=== PATIENT | male | born 1945 | race Caucasian/White ===

== ENCOUNTER 2023-05-18 10:48 | Outpatient (CLI) | payer MEDICARE, OTHER, SELFPAY ==
[2023-05-18 10:56] VITALS: BP 170/79; PULSE 61; RESP 18; O2SAT 96
[2023-05-18] MEDS: TETRACAINE 0.5% OPHTH 1 DROP EYE-BOTH ×3 (10:59→11:22)
[2023-05-18] MEDS: BRIMONIDINE TARTRATE 0.2% OPHTH 1 DROP EYE-BOTH ×2 (11:01→11:37)
--- NOTE | 2023-05-18 11:38 | P.OPTPRC_ITS ---
Procedure Note Date of procedure: 05/18/23 Will [facility] bill your pro fee for this procedure?: Yes Procedure Description: SURGEON: Jailyn Morin MD PREOPERATIVE DIAGNOSIS: Posterior capsular opacity, right and left eye POSTOPERATIVE DIAGNOSIS: Posterior capsular opacity, right and left eye PROCEDURE: YAG laser capsulotomy, both eyes ANESTHESIA: Topical. ESTIMATED BLOOD LOSS: None PATHOLOGY SPECIMEN: None COMPLICATIONS: None INDICATIONS: See consult note for details. The risks, benefits and alternatives of the procedure were explained to the patient, who elected to proceed and signed informed consent to do so. PROCEDURE: The patient was brought to the pre-holding area where the right and left eyes were identified as the operative eyes. I placed my initials above the eyes. The following was given in both eyes: The patient received 2 sets of 1 drop of 0.5% tetracaine and 1 drop of 1% tropicamide. They also received 1 drop of 0.2% brimonidine. They received 1 drop of 0.5% tetracaine immediately prior to bringing them back for the procedure. The patient was then brought to the procedure room where the right and left eyes were again identified as the operative eyes. A YAG Mitchell capsulotomy lens was placed on the right eye. The laser was administered using a total number of 14 shots with an energy of 2.4 mJ per shot for a total energy of 34 mJ. The patient tolerated the procedure well. A YAG Mitchell capsulotomy lens was placed on the left eye. The laser was administered using a total number of 10 shots with an energy of 2.4 mJ per shot for a total energy of 24 mJ. The patient tolerated the procedure well. DISPOSITION: The patient was taken back to the pre-holding area and given 1 drop of 0.2% brimonidine in both eyes. They were discharged to home in stable condition. The patient was instructed to call me or go to the emergency department with any sudden change, including dramatic loss of vision, severe pain in the eye or eyebrow region, nausea, or vomiting. The patient was instructed to use the 0.2% brimonidine 1 drop 2 times a day in both eyes for 1 week. The patient will follow up in the clinic in 1-2 weeks.
== END 2023-05-18 11:38 | disposition home or self-care (01) ==
LOC: EYE PRC 10:51
PROVIDERS: PCP Family Medicine; Visit Provider Ophthalmology
DX: H26.9 Unspecified cataract (principal)
CPT/HCPCS: 66821; A9270

== ENCOUNTER 2023-11-10 13:58 | Observation (INO) | payer MEDICARE, OTHER, SELFPAY ==
[2023-11-10 14:18] VITALS: BP 180/72; PULSE 106; RESP 20; TEMP 38.6; O2SAT 97; BMI 29.5
--- NOTE | 2023-11-10 14:58 | CRLHL7_ITS ---
For Patients: As a result of the Century Cures Act, medical imaging exams and procedure reports are released immediately into your electronic medical record. You may view this report before your referring provider. If you have questions, please contact your health care provider. INDICATION: Covid positive TECHNIQUE: Chest 2 views. COMPARISON: None. FINDINGS: Cardiovascular and mediastinum: Heart size and vasculature are within normal limits. Lungs and pleural spaces: Lungs are clear. No sign of infiltrate or mass. No sign of pleural effusion. No pneumothorax. Bones and soft tissues: No significant findings. IMPRESSION: No acute cardiopulmonary process. Dictated by Buster Og MD @ 11/10/2023 4:36:04 PM (Electronically Signed)
[2023-11-10] MEDS: LACTATED RINGERS 1000 ML 1,000 ML IV (15:20)
[2023-11-10] MEDS: ACETAMINOPHEN 325 MG TABLET 650 MG PO (15:20)
[2023-11-10 15:55] LABS: Lactate* 2.8 mmol/L (0.5-1.9)
[2023-11-10 16:02] LABS: Basophils Percent Auto 0.4 % (0.0-3.0); Eosinophils Percent Auto 0.1 % (0.0-7.0); Hematocrit 40.5 % (37.0-53.0); Hemoglobin* 14.6 gm/dL (13.5-17.5); Immature Granulocytes Pct Auto 0.1 %; Lymphocytes Percent Auto 3.7 % (20-44); Mean Corpuscular HGB Conc 36 gm/dL (32-36); Mean Corpuscular Hemoglobin 31 pg (26-34); Mean Corpuscular Volume 86 fL (80-100); Neutrophils Percent Auto 88.7 % (42.0-72.0); Platelet Count* 186 K/uL (140-440); RDW Coefficient of Variation % 12.6 % (11.5-15.5); Red Blood Count 4.71 m/uL (4.30-5.90); White Blood Count* 13.51 K/uL (4.50-11.00)
[2023-11-10 16:03] LABS: Slide Review Reflex No
--- NOTE | 2023-11-10 16:03 | ED.GENADULT ---
HPI - General Adult General Date Seen: 11/10/23 Chief complaint: Fever Stated complaint: Fever, diarrhea Time Seen by Provider: 11/10/23 14:24 Source: patient Mode of arrival: ambulatory Limitations: no limitations History of Present Illness HPI narrative: Patient is a 78-year-old male with history of hypertension, hyperlipidemia and a recent prostate biopsy presenting to the emergency department for fever and diarrhea. He states he had the grossly biopsy 6 days ago at in the few hours after this was done he started having watery diarrhea. Has been having watery diarrhea since then ordered had 1 episode yesterday which she says it was more formed. Today he developed a fever is not yet taking anything for that fever. You was feeling mildly fatigued and decided to do a home COVID test that was positive. Denies chest pain, shortness of breath, abdominal pain, weakness, numbness, lightheadedness, dizziness. Has not noticed any blood in his urine or stool. Denies any dysuria. He states he was initially told he would see blood in his urine for up to week but states was only there for 24 hours at the most. Related Data Home Medications Medication Instructions Recorded Confirmed lisinopril 20 2 tab PO DAILY 11/10/23 11/10/23 mg-hydrochlorothiazide 12.5 mg tablet simvastatin 20 mg tablet 20 mg PO QPM 11/10/23 11/10/23 tamsulosin 0.4 mg capsule 0.4 mg PO DAILY 11/10/23 11/10/23 Allergies Allergy/AdvReac Type Severity Reaction Status Date / Time No Known Drug Allergies Allergy Verified 11/10/23 19:56 Review of Systems Status of ROS: Reports: 10 or more systems reviewed and unremarkable except as noted in History and below [facility] Medical History (Updated 11/10/23 @ 21:05 by Jie Sanchez MD) Elevated PSA ?R97.20 - Elevated prostate specific antigen [PSA] (ICD-10) BPH (benign prostatic hyperplasia) ?N40.0 - Benign prostatic hyperplasia without lower urinary tract symptoms (ICD-10) Prediabetes ?R73.03 - Prediabetes (ICD-10) Tricuspid regurgitation ?I07.1 - Rheumatic tricuspid insufficiency (ICD-10) Hyperlipidemia ?E78.5 - Hyperlipidemia, unspecified (ICD-10) Essential hypertension ?I10 - Essential (primary) hypertension (ICD-10) Surgical History (Updated 11/10/23 @ 19:34 by Jie Sanchez MD) Hx of tonsillectomy ?Z90.89 - Acquired absence of other organs (ICD-10) H/O nasal septoplasty ?Z98.890 - Other specified postprocedural states (ICD-10) Hx of cataract removal with insertion of prosthetic lens ?Z98.49 - Cataract extraction status, unspecified eye (ICD-10) ?Z96.1 - Presence of intraocular lens (ICD-10) Social History Smoking Status: Never smoker Do you use any of these nicotine containing products: None How often do you have a drink containing alcohol: 2-4 times a month How many standard drinks containing alcohol do you have on a typical day: 1 or 2 AUDIT-C Alcohol total score: 2 Non-prescribed substance use: denies use Exam Narrative: Exam Narrative: Const: Well-nourished, Well-developed, in mild distress Eyes: PERRL, no conjunctival injection, and symmetrical lids HENT: Atraumatic external nose and ears. Moist mucous membranes. Neck: Symmetric, trachea midline, No thyromegaly. CVS: Tachycardia, No murmurs or gallops. Peripheral pulses 2+ and equal in all extremities RESP: Unlabored respiratory effort. Clear to auscultation bilaterally. GI: Nontender/Nondistended, No rebound or guarding. MSK:Extremities w/o deformity, Normal Active ROM Skin: Warm, Dry. No rashes or lesions. Neuro: Normal Muscle tone, No focal neurological deficits. Psych: Awake, Alert, & Oriented x3. Appropriate mood and affect. Const: Vital Signs, click to edit/add: Vital Signs - 24 hr 11/10/23 14:18 11/10/23 16:32 11/10/23 20:04 Temperature 101.5 F H 100.0 F H Pulse Rate [Pulse Oximeter] 106 H 90 89 Respiratory Rate 20 20 20 Blood Pressure [Ri ght Upper Arm] 180/72 H 131/58 L 130/64 Pulse Oximetry 97 96 98 Oxygen Delivery Me thod Room Air Room Air Room Air Course Vital Signs Vital signs: Initial Vital Signs Temperature 101.5 F H 11/10/23 14:18 Temperature Source Temporal Artery Scan 11/10/23 14:18 Pulse Rate 106 H 11/10/23 14:18 Respiratory Rate 20 11/10/23 14:18 Blood Pressure 180/72 H 11/10/23 14:18 Blood Pressure Mean 108 H 11/10/23 14:18 Blood Pressure Position Sitting 11/10/23 14:18 Pulse Oximetry 97 11/10/23 14:18 Oxygen Delivery Method Room Air 11/10/23 14:18 Vital Signs Temperature 101.5 F H 11/10/23 14:18 Pulse Rate 106 H 11/10/23 14:18 Respiratory Rate 20 11/10/23 14:18 Blood Pressure 180/72 H 11/10/23 14:18 Pulse Oximetry 97 11/10/23 14:18 Oxygen Delivery Method Room Air 11/10/23 14:18 Temperature 99.0 F 11/10/23 20:32 Pulse Rate 95 11/10/23 20:32 Respiratory Rate 16 11/10/23 20:32 Blood Pressure 138/68 11/10/23 20:32 Pulse Oximetry 95 11/10/23 20:32 Oxygen Delivery Method Room Air 11/10/23 20:32 Medications Administered Medications: Generic Name Dose Route Start Last Admin Trade Name Freq PRN Reason Stop Dose Admin Ondansetron HCl 4 mg 11/10/23 19:58 11/10/23 20:10 Ondansetron 2 Mg/Ml Inj IVP 11/10/23 19:59 4 mg ONCE ONE Administration Discontinued Medications Generic Name Dose Route Start Last Admin Trade Name Freq PRN Reason Stop Dose Admin Acetaminophen 650 mg 11/10/23 14:57 11/10/23 15:20 Acetaminophen 325 Mg Tablet PO 11/10/23 14:58 650 mg ONCE ONE Administration Lactated Ringer's 1,000 mls @ 1,000 mls/hr 11/10/23 14:57 11/10/23 16:34 Lactated Ringers 1000 Ml IV 11/10/23 15:56 Infused .Q1H ONE Infusion Medical Decision Making MDM Narrative Medical decision making narrative: Patient is a 78-year-old male presenting to emergency department for fever and diarrhea. He has been having diarrhea since his procedure 6 days ago. He states diarrhea started about an hour after the prostate biopsy. Seems unlikely he will developed infection that quickly. He is tachycardic with a fever and meets SIRS criteria so septic workup was ordered. He is feeling dehydrated in fluids were given. White blood cell count came up to 13.5. While he does have COVID this could be from the COVID but we cannot rule out a bacterial cause so will do CT scan of the abdomen and pelvis to make sure there is no other abnormalities. He also has a lactate of 2.8. After the Tylenol and L fluids his vitals improved significantly and I do not believe it is necessary to given the full 30 per kilos of IV fluids for sepsis. Chest x-ray an EKG showed no concerning abnormalities. Troponin within normal limits. He did have some diarrhea and C diff was ordered. I spoke to the admitting hospitalist and she is agreeable to accept him before the CT of the abdomen and pelvis returns. He is accepted to the hospitalist service. Lab Data Labs: Lab Results 11/10/23 11/10/23 11/10/23 Range/Units 15:30 16:58 19:50 WBC 13.51 H (4.50-11.00) K/uL RBC 4.71 (4.30-5.90) m/uL Hgb 14.6 (13.5-17.5) gm/dL Hct 40.5 (37.0-53.0) % MCV 86 (80-100) fL MCH 31 (26-34) pg MCHC 36 (32-36) gm/dL RDW Coeff of Esmer 12.6 (11.5-15.5) % Plt Count 186 (140-440) K/uL Neut % (Auto) 88.7 H (42.0-72.0) % Lymph % (Auto) 3.7 L (20-44) % [place] % (Auto) 7.0 (0.0-11.0) % Eos % (Auto) 0.1 (0.0-7.0) % Baso % (Auto) 0.4 (0.0-3.0) % Neut # (Auto) 12.00 H (1.7-7.0) K/uL Lymph # (Auto) 0.50 L (0.90-2.90) K/uL [place] # (Auto) 0.90 (0.00-0.90) K/UL Eos # (Auto) 0.00 (0.00-0.50) K/uL Baso # (Auto) 0.10 (0.00-0.30) K/uL Abs Immat Gran (auto) 0.00 (0.00-0.30) K/uL Imm/Tot Granulo (auto) 0.1 % Sodium 130 L (135-149) mmol/L Potassium 3.9 (3.6-5.1) mmol/L Chloride 96 (96-114) mmol/L Carbon Dioxide 23 (20-32) mmol/L Anion Gap 11 (7-15) mEq/L BUN 18 (7-30) mg/dL Creatinine 0.8 (0.5-1.5) mg/dL Estimated Creat Clear 69.64 Estimated GFR 90 ml/min Glucose 134 H (60-115) mg/dL Lactate 2.8 H (0.5-1.9) mmol/L Calcium 8.9 (8.4-10.6) mg/dL Total Bilirubin 1.3 (0.1-1.5) mg/dL AST 24 (12-35) U/L ALT 22 (4-50) U/L Alkaline Phosphatase 114 (40-150) U/L Troponin I < 0.01 L (0.01-0.04) ng/mL Total Protein 6.9 (6.0-8.3) g/dL Albumin 4.4 (3.3-5.0) g/dL Urine Color Dark yellow (Yellow) Urine Appearance Clear (Clear) Urine pH 5.5 (5.0-8.5) Ur Specific [place] >= 1.030 (1.000-1.030) Urine Protein Negative (Negative) Urine Glucose (UA) Trace A (Negative) Urine Ketones Negative (Negative) Urine Blood 2+ A (Negative) Urine Nitrite Negative (Negative) Urine Bilirubin Negative (Negative) Urine Urobilinogen 0.2 (0.2-1.0) Ur Leukocyte Esterase Negative (Negative) Urine RBC 0-2 (0-2) Urine WBC 0-2 (0-5) Ur Squamous Epith Cells None (None-Few) Urine Bacteria Few A (None) Stl C. diff Tox B Gene POSITIVE A* (Negative) Stl C. diff [id number] PRESUMPTIVE POSITIVE (Negative) ECG Data Attestation: I personally reviewed and interpreted this ECG as follows: Prior ECG tracings: not available for review Interpretation: Heart rate of 104 beats per minute, sinus tachycardia, no ST or T-wave abnormalities, normal axis, normal intervals
--- NOTE | 2023-11-10 16:07 | CRLHL7_ITS ---
For Patients: As a result of the Century Cures Act, medical imaging exams and procedure reports are released immediately into your electronic medical record. You may view this report before your referring provider. If you have questions, please contact your health care provider. INDICATION: SIRS, RECENT PROSTATE BIOPSY. TECHNIQUE: CT abdomen and pelvis acquired with 100 cc Omnipaque 350 IV contrast. COMPARISON: None. FINDINGS: Lower chest: Right lower lobe atelectasis. Coronary artery calcifications. Aortic valve calcifications. Liver: Numerous tiny hypodensities throughout the liver likely small cysts. Otherwise normal in size and attenuation. Gallbladder and bile ducts: Cholelithiasis with multiple gallstones in the dependent portion the gallbladder. No gallbladder wall thickening or pericholecystic fluid. No intra or extrahepatic biliary ductal dilatation. Pancreas: Unremarkable. No mass or inflammation. Spleen: Unremarkable. Normal in size. No masses. Adrenal glands: Unremarkable. No nodules. Kidneys: Unremarkable. No suspicious masses, stones, or hydronephrosis. GI tract: Mild thickening and mucosal enhancement in the rectum and sigmoid colon. No bowel obstruction. Vasculature: Abdominal aorta is normal in caliber. Mesenteric arteries are patent. Lymph nodes: No lymphadenopathy. Peritoneum/Abdominal Wall: Unremarkable. No sign of mass or infiltration. No free air or significant free fluid. Pelvis: Unremarkable. Bones: Unremarkable for age. IMPRESSION: Mild wall thickening and mucosal enhancement in the rectum and sigmoid can be seen ascending colitis. Cholelithiasis without evidence of cholecystitis. Please note that all CT scans at this facility use dose modulation, iterative reconstruction, and/or weight-based dosing when appropriate to reduce radiation dose to as low as reasonably achievable. Dictated by Idalia Almanza MD @ 11/10/2023 8:36:23 PM (Electronically Signed)
[2023-11-10 16:13] LABS: Albumin* 4.4 g/dL (3.3-5.0); Chloride* 96 mmol/L (96-114); Sodium* 130 mmol/L (135-149)
[2023-11-10 16:14] LABS: Potassium* 3.9 mmol/L (3.6-5.1)
[2023-11-10 16:16] LABS: Alanine Aminotransferase* 22 U/L (4-50); Alkaline Phosphatase* 114 U/L (40-150); Aspartate Amino Transferase* 24 U/L (12-35); Bilirubin Total* 1.3 mg/dL (0.1-1.5); Blood Urea Nitrogen* 18 mg/dL (7-30); Carbon Dioxide* 23 mmol/L (20-32); Creatinine* 0.8 mg/dL (0.5-1.5); Est. Creatinine Clearance* 69.64; Estimated Glomerular Filt Rate 90 ml/min; Glucose* 134 mg/dL (60-115); Total Protein* 6.9 g/dL (6.0-8.3)
[2023-11-10 16:17] LABS: Calcium* 8.9 mg/dL (8.4-10.6)
[2023-11-10 16:32] VITALS: BP 131/58; PULSE 90; RESP 20; TEMP 37.8; O2SAT 96
[2023-11-10 16:34] LABS: Anion Gap 11 mEq/L (7-15); Troponin I* < 0.01 ng/mL (0.01-0.04)
[2023-11-10 17:08] LABS: Appearance Urine Clear (Clear); Bilirubin Urine Negative (Negative); Blood Urine 2+ (Negative); Color Urine Dark yellow (Yellow); Glucose Urine Trace (Negative); Ketones Urine Negative (Negative); Leukocyte Esterase Urine Negative (Negative); Nitrite Urine Negative (Negative); Protein Urine Negative (Negative); Specific Gravity Urine >= 1.030 (1.000-1.030); Urobilinogen Urine 0.2 (0.2-1.0); pH Urine 5.5 (5.0-8.5)
[2023-11-10 17:52] LABS: Bacteria Urine Few; RBC Urine 0-2 (0-2); WBC Urine 0-2 (0-5)
--- NOTE | 2023-11-10 19:54 | PC.NURSE ---
report given to M/S nurse
[2023-11-10 20:04] VITALS: BP 130/64; PULSE 89; RESP 20; O2SAT 98
[2023-11-10] MEDS: ONDANSETRON 2 MG/ML inj 4 MG IVP (20:10)
--- NOTE | 2023-11-10 20:30 | P.IMHP_ITS ---
Hospitalist- H&P: HPI History of Present Illness Date Seen: 11/10/23 Chief complaint: Fever, diarrhea Narrative: Nick Padron is a 78 year old male who presented to the emergency room today for evaluation of fever. He woke up this morning having chills and feeling shaky. His temporal thermometer at home was inconsistent, but did read a temperature as high as 102.6?. Home COVID testing was positive. Patient denies cough or shortness of breath. No known COVID contacts. Fredi had a prostate biopsy performed at [facility] 6 days ago, and was instructed to come to the emergency room with any fevers postoperatively. There were no complications during his procedure, and he was premedicated with antibiotics. Notably, he has had liquid diarrhea that started soon after his biopsy. He has not had any hematochezia. He is making adequate urine without hematuria. Appetite has been stable. This morning, while he was sitting on the toilet he had a sharp pain in the suprapubic region that resolved in approximately 30 seconds and has not returned. ER Course and Findings: - 1000 mL bolus - elevated lactate, Tmax 101.5 - WBC 13, normal renal function and LFTs - no acute findings on CXR - CT of abdomen and pelvis exhibits concerns of colitis, incidental cholelithiasis - positive C-Diff When I see Fredi, he has no acute concerns. He had one episode of severe nausea in the ED, this resolved upon arrival to the floor after eating a ham sandwich. He has had no syncope, pre-syncope, chest pain, or dyspnea. Review of Systems Status of ROS: Reports: 10 or more systems reviewed and unremarkable except as noted in History and below Narrative: - R knee OA, had Syn-Visc injection on 10/21/23, intermittent pain in R knee [facility] Medical History (Updated 11/10/23 @ 22:28 by Jie Sanchez MD) Elevated PSA ?R97.20 - Elevated prostate specific antigen [PSA] (ICD-10) BPH (benign prostatic hyperplasia) ?N40.0 - Benign prostatic hyperplasia without lower urinary tract symptoms (ICD-10) Prediabetes ?R73.03 - Prediabetes (ICD-10) Tricuspid regurgitation ?I07.1 - Rheumatic tricuspid insufficiency (ICD-10) Hyperlipidemia ?E78.5 - Hyperlipidemia, unspecified (ICD-10) Essential hypertension ?I10 - Essential (primary) hypertension (ICD-10) Surgical History (Updated 11/10/23 @ 19:34 by Jie Sanchez MD) Hx of tonsillectomy ?Z90.89 - Acquired absence of other organs (ICD-10) H/O nasal septoplasty ?Z98.890 - Other specified postprocedural states (ICD-10) Hx of cataract removal with insertion of prosthetic lens ?Z98.49 - Cataract extraction status, unspecified eye (ICD-10) ?Z96.1 - Presence of intraocular lens (ICD-10) Social History (Updated 11/10/23 @ 22:10 by Jie Sanchez MD) Narrative: Lives with Gege, 2 adult daughters. 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 Nonsmoker, rare ETOH use. Full Code. Smoking Status: Never smoker Do you use any of these nicotine containing products: None How often do you have a drink containing alcohol: 2-4 times a month How many standard drinks containing alcohol do you have on a typical day: 1 or 2 AUDIT-C Alcohol total score: 2 Non-prescribed substance use: denies use Meds Home Medications and Allergies Home Medications Medication Instructions Recorded Confirmed Type lisinopril 20 2 tab PO DAILY 11/10/23 11/10/23 History mg-hydrochlorothiazide 12.5 mg tablet simvastatin 20 mg tablet 20 mg PO QPM 11/10/23 11/10/23 History tamsulosin 0.4 mg capsule 0.4 mg PO DAILY 11/10/23 11/10/23 History Home Medication Comments: Also takes fish oil daily, Aleve a few days/week for knee pain Allergies Allergy/AdvReac Type Severity Reaction Status Date / Time No Known Drug Allergies Allergy Verified 11/10/23 19:56 Exam Narrative: Exam Narrative: GEN: Alert and oriented, nontoxic, answering questions appropriately HEENT: Normal external ears, EOMIs bilaterally, no scleral icterus CV: RRR, + systolic murmur heard best at LSB R: LCTA bilaterally without concerning wheezing Ab: Soft, protuberant, no ttp, no rebound or guarding Ext: wwp, no pitting edema. Full ROM of R knee without any crepitus or pain with movement. No erythema or effusion over R knee Skin: No concerning skin lesions or rashes on exposed skin Neuro: No focal deficits Psych: Appropriate Const: Vital Signs, click to edit/add: Vital Signs - 24 hr 11/10/23 14:18 11/10/23 16:32 11/10/23 20:04 Temperature 101.5 F H 100.0 F H Pulse Rate [Pulse Oximeter] 106 H 90 89 Respiratory Rate 20 20 20 Blood Pressure [Ri ght Upper Arm] 180/72 H 131/58 L 130/64 Pulse Oximetry 97 96 98 Oxygen Delivery Me thod Room Air Room Air Room Air Hospitalist - H&P: Result Labs Labs: Short CBC 11/10/23 Range/Units 15:30 WBC 13.51 H (4.50-11.00) K/uL Hgb 14.6 (13.5-17.5) gm/dL Hct 40.5 (37.0-53.0) % Plt Count 186 (140-440) K/uL BMP 11/10/23 15:30 Sodium 130 L Potassium 3.9 Chloride 96 Carbon Dioxide 23 BUN 18 Creatinine 0.8 Glucose 134 H Calcium 8.9 Cardiac Enzymes 11/10/23 Range/Units 15:30 Troponin I < 0.01 L (0.01-0.04) ng/mL Liver Function 11/10/23 Range/Units 15:30 Total Bilirubin 1.3 (0.1-1.5) mg/dL AST 24 (12-35) U/L ALT 22 (4-50) U/L Alkaline Phosphatase 114 (40-150) U/L Albumin 4.4 (3.3-5.0) g/dL Urine 11/10/23 Range/Units 16:58 Urine Color Dark yellow (Yellow) Urine Appearance Clear (Clear) Urine pH 5.5 (5.0-8.5) Ur Specific [place] >= 1.030 (1.000-1.030) Urine Protein Negative (Negative) Urine Glucose (UA) Trace A (Negative) Assessment and Plan Assessment and plan (1) C. difficile colitis: Problem comment: - Vancomycin, symptom management Status: Acute (2) COVID-19: Problem comment: - will confirm with hospital PCR - not requiring supplemental oxygen - Remdesivir as COVID specific therapy given age and comorbidities, will initiate Decadron if any supplemental oxygen needs arise Status: Acute (3) Fever: Problem comment: - combination of C-diff, COVID - upon arrival to the floor (11/10) is normotensive, afebrile, no tachycardia - blood cultures pending - follow WBC, inflammatory markers Status: Acute Plan - per above - Full Code status - SCDs for ppx, anticipate 1-2 day stay - Gege updated by phone, questions answered
[2023-11-10 20:32] VITALS: BP 138/68; PULSE 95; RESP 16; TEMP 37.2; O2SAT 95
[2023-11-10 20:50] LABS: CDIFFEPI 027 PRESUMPTIVE POSITIVE (Negative)
[2023-11-10 21:00] LABS: C.Difficile POSITIVE (Negative)
[2023-11-10] MEDS: 0.9 % SODIUM CHLORIDE 1000 ml 1,000 ML 75 ML IV (21:42)
[2023-11-10] MEDS: SIMVASTATIN 20 MG TABLET PO (22:15)
[2023-11-10] MEDS: VANCOMYCIN 125 MG CAPSULE PO (22:15)
[2023-11-10 23:11] LABS: PCR FLU A Negative PCR FLU A (Negative); PCR FLU B Negative PCR FLU B (Negative); PCR RSV Negative PCR RSV (Negative)
[2023-11-11 00:27] LABS: SARS PCR* Negative SARS-CoV-2 (Negative)
[2023-11-11 03:45] VITALS: BP 123/67; PULSE 80; RESP 18; TEMP 37.4; O2SAT 95
--- NOTE | 2023-11-11 06:04 | PC.NURSE ---
End Of Shift: The patient arrived to the floor @2014 via wheelchair. Patient is pleasant and alert and orientated. Upon initial assessment the patient reported mild R knee pain. Aggravated by movement. No SOB,dizziness when up. VSS on RA. Prior to arrival on the floor the patient had mild nausea that resolved after administration of IV Zofran. Per patient report he tested positive for COVID with an at home test... We tested him here and he was negative. Remdesivir order was already obtained prior and the loading dose was given via IV. Normal saline running @ 75hr. Patient calls appropriately and is SBA with IV pole. Mild temp of 99.3 @0300 VS. Continent of bowel and bladder. Frequent loose stools throughout the night. Stool sample was obtained from ED and was positive for CDIFF- enhanced contact precautions are in place. All belongings are with the patient in the room. Call light within reach and will call appropriately. Dorcas CHERRY BSN
[2023-11-11 06:33] LABS: Lactate* 2.1 mmol/L (0.5-1.9)
[2023-11-11 06:49] LABS: Basophils Percent Auto 0.2 % (0.0-3.0); Hematocrit 37.2 % (37.0-53.0); Hemoglobin* 13.1 gm/dL (13.5-17.5); Immature Granulocytes Pct Auto 0.2 %; Mean Corpuscular HGB Conc 35 gm/dL (32-36); Mean Corpuscular Hemoglobin 31 pg (26-34); Mean Corpuscular Volume 87 fL (80-100); Monocytes Percent Auto 7.8 % (0.0-11.0); Neutrophils Percent Auto 86.8 % (42.0-72.0); Platelet Count* 152 K/uL (140-440); RDW Coefficient of Variation % 13.1 % (11.5-15.5); Red Blood Count 4.26 m/uL (4.30-5.90); White Blood Count* 12.71 K/uL (4.50-11.00)
[2023-11-11 07:00] VITALS: PULSE 86; RESP 18
[2023-11-11 07:09] LABS: Albumin* 3.6 g/dL (3.3-5.0)
[2023-11-11 07:10] LABS: Chloride* 99 mmol/L (96-114); Potassium* 4.1 mmol/L (3.6-5.1); Sodium* 132 mmol/L (135-149)
[2023-11-11 07:12] LABS: Bilirubin Total* 1.4 mg/dL (0.1-1.5); Est. Creatinine Clearance* 69.64; Estimated Glomerular Filt Rate 77 ml/min
[2023-11-11 07:13] LABS: Alanine Aminotransferase* 19 U/L (4-50); Alkaline Phosphatase* 70 U/L (40-150); Anion Gap 9 mEq/L (7-15); Aspartate Amino Transferase* 21 U/L (12-35); Blood Urea Nitrogen* 23 mg/dL (7-30); Calcium* 8.2 mg/dL (8.4-10.6); Carbon Dioxide* 24 mmol/L (20-32); Glucose* 134 mg/dL (60-115); Total Protein* 6.1 g/dL (6.0-8.3)
[2023-11-11 07:22] LABS: Slide Review Reflex No
[2023-11-11] MEDS: ONDANSETRON 2 MG/ML inj 4 MG IVP (07:36)
[2023-11-11] MEDS: SODIUM CHLORIDE 0.9 % (FLUSH) 10 ML SYRINGE 5 ML IVF (07:41)
[2023-11-11 07:43] VITALS: BP 118/64; PULSE 86; RESP 18; TEMP 37.2; O2SAT 93
[2023-11-11] MEDS: VANCOMYCIN 125 MG CAPSULE PO (09:12)
[2023-11-11] MEDS: TAMSULOSIN HCL 0.4 MG CAPSULE PO (09:12)
--- NOTE | 2023-11-11 10:26 | NUTR.NU ---
RDN with MD consult for C.Diff. Patient admitted for fever and diarrhea, found to be positive for C.Diff. Current diet is regular, meal intake at breakfast was 75%. Height 6ft 2in, weight 234lb 6.4oz, BMI is obese at 30.1kg/m2. RDN visited with patient whom reported his diarrhea started about 6 days ago after he had a biopsy done of his prostate. He reports his diarrhea has began to improve since admit. His weight has been stable recently. RDN offered diet education related to diarrhea, patient accepted. Patient was provided diet education on a low fiber diet to help manage diarrhea. Discussed foods to include and foods to avoid until MD recommends advancing diet to normal diet. Also encouraged intake of probiotics daily such as yogurt or sauerkraut for gut health. Verbal and written information AND NCM. Patient verbalized understanding. RDN's contact information was provided and patient was encouraged to contact RDN with questions.
--- NOTE | 2023-11-11 10:31 | REH.PT ---
PT to assess mobility. Pt able to demo ind with all transfers and gait without need for an AD. Pt with chronic knee pain and plans to consult with ortho next year for a knee replacement. Educated on use of a SPC with gait and a HEP for LE strengthening. D/C PT. No charge.
--- NOTE | 2023-11-11 11:07 | PC.NURSE ---
Pt noted to be alert & oriented x 4 and able to make needs known. Discharge paperwork has been completed and pt will be discharging to home shortly. present when discharge paperwork reviewed. IV removed from R AC. Pt has had no c/o pain and was given PRN Zofran IVP for nausea this morning which has since relieved.
--- NOTE | 2023-11-11 15:24 | P.DS_ITS ---
DS: Providers Provider Date Seen: 11/11/23 Date of admission: 11/10/23 20:11 Primary care physician: Micha Kong MD Admitting Clinician: Jie Sanchez MD Consults: 11/10/23 21:09 Consult to Nutrition [CONS] Routine Comment: Reason for consult:: Miscellaneous Comment: C-Diff Consult to Physical Therapy [CONS] Routine Comment: Reason(s) for PT Consult:: Balance Assessment Any Restrictions?:: No Restrictions Comment: COVID and C-Diff, brief ambulation evaluation please Attending Physician on discharge: Jared Joseph MD Date of Discharge: 11/11/23 DS: Diagnosis Discharge Diagnosis (1) Diarrhea: Status: Acute Problem details: - onset 1 week prior to admission on 11/10/2023 (2) C. difficile colitis: Status: Acute Problem details: - Vancomycin orally started 11/10/2023, with significant decrease in frequency and volume of diarrhea as well as resolution of fever (3) Fever: Status: Acute Problem details: - combination of C-diff, COVID - upon arrival to the floor (11/10) is normotensive, afebrile, no tachycardia - blood cultures pending - follow WBC, inflammatory markers (4) Dehydration: Status: Acute Problem details: - gentle IV fluid rehydration while in hospital with much improved symptom management (5) Prediabetes: Status: Acute Problem details: - last A1C 5.8 (07/2023) (6) Hyperlipidemia: Status: Acute (7) Essential hypertension: Status: Acute DS: Summary Hospital Course Hospital Course: History present illness: ?Nick Padron is a 78 year old male who presented to the emergency room today for evaluation of fever. He woke up this morning having chills and feeling shaky. His temporal thermometer at home was inconsistent, but did read a temperature as high as 102.6?. Home COVID testing was positive. Patient denies cough or shortness of breath. No known COVID contacts. ?Fredi had a prostate biopsy performed at [facility] 6 days ago, and was instructed to come to the emergency room with any fevers postoperatively. There were no complications during his procedure, and he was premedicated with antibiotics. Notably, he has had liquid diarrhea that started soon after his biopsy. He has not had any hematochezia. He is making adequate urine without hematuria. Appetite has been stable. This morning, while he was sitting on the toilet he had a sharp pain in the suprapubic region that resolved in approximately 30 seconds and has not returned. ?ER Course and Findings: - 1000 mL bolus - elevated lactate, Tmax 101.5 - WBC 13, normal renal function and LFTs - no acute findings on CXR - CT of abdomen and pelvis exhibits concerns of colitis, incidental cholelithiasis - positive C-Diff ?When I see Fredi, he has no acute concerns. He had one episode of severe nausea in the ED, this resolved upon arrival to the floor after eating a ham sandwich. He has had no syncope, pre-syncope, chest pain, or dyspnea.? Patient condition improved substantially in hospital. Treated with IV fluids for rehydration. Received a single dose of remdesivir before we received a negative COVID PCR antibody test results. Started on oral vancomycin 125 mg q.i.d.. Diarrhea frequency and volume decreased substantially in the short period time he was in the hospital. Patient was all set to go home. No orthostasis. Eating and drinking. Status at Discharge Functional status at discharge: independent ambulation Overall status at discharge: patient is back to baseline Time Spent with Patient Time attestation: Total time spent providing and/or coordinating discharge services: Time spent: Greater than 30 minutes Exam Narrative: Exam Narrative: GEN: Alert and oriented, nontoxic, answering questions appropriately HEENT: Normal external ears, EOMIs bilaterally, no scleral icterus CV: RRR, + systolic murmur heard best at LSB R: LCTA bilaterally without concerning wheezing Ab: Soft, protuberant, no ttp, no rebound or guarding Ext: wwp, no pitting edema. Full ROM of R knee without any crepitus or pain with movement. No erythema or effusion over R knee Skin: No concerning skin lesions or rashes on exposed skin Neuro: No focal deficits. Independent in transfer, station, and gait. Psych: Appropriate Const: Vital Signs, click to edit/add: Vital Signs - 24 hr 11/10/23 16:32 11/10/23 20:04 11/10/23 20:32 Temperature 100.0 F H Pulse Rate [Left P ulse Oximeter] Pulse Rate [Pulse Oximeter] 90 89 Respiratory Rate 20 20 16 Blood Pressure [Le ft Arm] Blood Pressure [Ri ght Upper Arm] 131/58 L 130/64 Pulse Oximetry 96 98 95 Oxygen Delivery Me thod Room Air Room Air Room Air 11/10/23 20:32 11/11/23 03:45 11/11/23 07:00 Temperature 99.0 F 99.3 F Pulse Rate [Left P ulse Oximeter] 95 80 86 Pulse Rate [Pulse Oximeter] Respiratory Rate 16 18 18 Blood Pressure [Le ft Arm] 138/68 123/67 Blood Pressure [Ri ght Upper Arm] Pulse Oximetry 95 95 Oxygen Delivery Me thod Room Air Room Air 11/11/23 07:43 Temperature 98.9 F Pulse Rate [Left P ulse Oximeter] 86 Pulse Rate [Pulse Oximeter] Respiratory Rate 18 Blood Pressure [Le ft Arm] 118/64 Blood Pressure [Ri ght Upper Arm] Pulse Oximetry 93 Oxygen Delivery Me thod Room Air Documenting provider has reviewed patient's vital signs: yes DS: Data Data Completed and Pending Labs on day of discharge: Labs from last 24 hours 11/11/23 11/10/23 11/10/23 06:20 22:20 19:50 WBC 12.71 H RBC 4.26 L Hgb 13.1 L Hct 37.2 MCV 87 MCH 31 MCHC 35 RDW Coeff of Esmer 13.1 Plt Count 152 Neut % (Auto) 86.8 H Lymph % (Auto) 5.0 L Miner % (Auto) 7.8 Eos % (Auto) 0.0 Baso % (Auto) 0.2 Neut # (Auto) 11.00 H Lymph # (Auto) 0.60 L Miner # (Auto) 1.00 H Eos # (Auto) 0.00 Baso # (Auto) 0.00 Abs Immat Gran (auto) 0.00 Imm/Tot Granulo (auto) 0.2 Sodium 132 L Potassium 4.1 Chloride 99 Carbon Dioxide 24 Anion Gap 9 BUN 23 Creatinine 1.0 Estimated Creat Clear 69.64 Estimated GFR 77 Glucose 134 H Lactate 2.1 H Calcium 8.2 L Total Bilirubin 1.4 AST 21 ALT 19 Alkaline Phosphatase 70 Troponin I Total Protein 6.1 Albumin 3.6 Urine Color Urine Appearance Urine pH Ur Specific [place] Urine Protein Urine Glucose (UA) Urine Ketones Urine Blood Urine Nitrite Urine Bilirubin Urine Urobilinogen Ur Leukocyte Esterase Urine RBC Urine WBC Ur Squamous Epith Cells Urine Bacteria Stl C. diff Tox B Gene POSITIVE A* Stl C. diff 027-NAP1-BI PRESUMPTIVE POSITIVE SARS-CoV-2 (PCR) Negative SARS-CoV-2 Influenza Type A (PCR) Negative PCR FLU A Influenza Type B (PCR) Negative PCR FLU B RSV (PCR) Negative PCR RSV 11/10/23 11/10/23 16:58 15:30 WBC 13.51 H RBC 4.71 Hgb 14.6 Hct 40.5 MCV 86 MCH 31 MCHC 36 RDW Coeff of Esmer 12.6 Plt Count 186 Neut % (Auto) 88.7 H Lymph % (Auto) 3.7 L Miner % (Auto) 7.0 Eos % (Auto) 0.1 Baso % (Auto) 0.4 Neut # (Auto) 12.00 H Lymph # (Auto) 0.50 L Miner # (Auto) 0.90 Eos # (Auto) 0.00 Baso # (Auto) 0.10 Abs Immat Gran (auto) 0.00 Imm/Tot Granulo (auto) 0.1 Sodium 130 L Potassium 3.9 Chloride 96 Carbon Dioxide 23 Anion Gap 11 BUN 18 Creatinine 0.8 Estimated Creat Clear 69.64 Estimated GFR 90 Glucose 134 H Lactate 2.8 H Calcium 8.9 Total Bilirubin 1.3 AST 24 ALT 22 Alkaline Phosphatase 114 Troponin I < 0.01 L Total Protein 6.9 Albumin 4.4 Urine Color Dark yellow Urine Appearance Clear Urine pH 5.5 Ur Specific [place] >= 1.030 Urine Protein Negative Urine Glucose (UA) Trace A Urine Ketones Negative Urine Blood 2+ A Urine Nitrite Negative Urine Bilirubin Negative Urine Urobilinogen 0.2 Ur Leukocyte Esterase Negative Urine RBC 0-2 Urine WBC 0-2 Ur Squamous Epith Cells None Urine Bacteria Few A Stl C. diff Tox B Gene Stl C. diff [id number]-NAP1-BI SARS-CoV-2 (PCR) Influenza Type A (PCR) Influenza Type B (PCR) RSV (PCR) Preliminary micro results at discharge 11/10/23 Unknown Urine Culture - Preliminary Urine,Clean Catch No growth. Imaging Chest x-ray: Attestation: I have reviewed the pertinent imaging results. Radiologist's impression: No acute cardiopulmonary process. CT scan of abdomen and pelvis: Attestation: I have reviewed the pertinent imaging results. Radiologist's impression: IMPRESSION: Mild wall thickening and mucosal enhancement in the rectum and sigmoid can be seen ascending colitis. Cholelithiasis without evidence of cholecystitis. Discharge Plan Discharge Disposition: Home, Self-Care Date of Admission: 11/10/23 20:11 Attending Provider on Discharge: Jared Joseph Primary Care Provider: Micha Kong Condition: Improved Anticipated Discharge Date/Time: 11/11/23 10:30 Discharge Medications: New vancomycin 125 mg Capsule 125 mg PO QID 10 Days Qty: 40 0RF Continued lisinopril-hydrochlorothiazide 20-12.5 mg tablet 2 tab PO DAILY tamsulosin 0.4 mg capsule 0.4 mg PO DAILY simvastatin 20 mg tablet 20 mg PO QPM Discharge Orders: Discharge Order (Routine); Ordered 11/11/23 Ordered By: Jared Joseph Patient Education: Vancomycin (By mouth), C. Diff (Clostridioides Difficile) Infection (DC) Additional Instructions: 1. Clostridioides Defficile precautions for all people contact for as long as you have diarrhea; 2. Bleach based cleaning of your bathroom and clothing for as long as you have diarrhea; 3. Continue to exercise COVID precautions; 4. Adequate hydration. 5. Follow-up with Dr. Kong in 1-2 weeks. Activity Level: No Restrictions and Activity as Tolerated Discharge Diet: Regular Diet Detail: Adequate daily hydration Follow Up Appointments: Micha Kong MD [Primary Care Provider] - 11/24/23 11:50 am ([facility] for [facility] Forms: [employer] Info Instructions
== END 2023-11-11 11:15 | disposition home or self-care (01) ==
LOC: ED 15:07 → MEDSURG 20:12
PROVIDERS: Admitting Provider Family Medicine; Emergency Provider Student in an Organized Health Care Education/Training Program; PCP Family Medicine; Visit Provider Family Medicine
DX: U07.1 COVID-19 (principal); A04.72 Enterocolitis due to Clostridium difficile, not specified as recurrent; R50.9 Fever, unspecified; R19.7 Diarrhea, unspecified; K80.80 Other cholelithiasis without obstruction; R00.0 Tachycardia, unspecified; E86.0 Dehydration; R11.0 Nausea; R73.03 Prediabetes; E78.5 Hyperlipidemia, unspecified; I10 Essential (primary) hypertension; R74.02 Elevation of levels of lactic acid dehydrogenase [LDH]; Z98.890 Other specified postprocedural states; N40.0 Benign prostatic hyperplasia without lower urinary tract symptoms; Z90.89 Acquired absence of other organs; Z98.49 Cataract extraction status, unspecified eye; Z96.1 Presence of intraocular lens
CPT/HCPCS: 36415; 71046; 74177; 80053; 81001; 83605; 84484; 85025; 87040; 87086; 87493; 87631; 93005; 96361; 96365; 96366; 96375; 96376; 99283; 99284; 99285; A9270; G0378; J2405; J7030; J7050; J7120; Q9967

== ENCOUNTER 2023-11-26 22:35 | Emergency (ER) | payer MEDICARE, OTHER, SELFPAY ==
[2023-11-26 22:39] VITALS: BP 199/75; PULSE 92; RESP 16; TEMP 38.4; O2SAT 96; BMI 29.7
[2023-11-26 22:50] VITALS: RESP 16; TEMP 38.4; O2SAT 96
--- NOTE | 2023-11-26 22:55 | ED.GENADULT ---
HPI - General Adult General Chief complaint: Fever Stated complaint: Cdiff and fever Time Seen by Provider: 11/26/23 22:55 History of Present Illness HPI narrative: recent hospitalization for Cdif. was initially feeling well at [place] and diarrhea had lessened. this AM woke feeling chilled with temp 99, throughout the day has had increased diarrhea and temps 101-102. finished vanco course, was seen by PCP on and advised if diarrhea returned or fevers present should be seen 78-year-old man presenting to the emergency department with concern of diarrhea and fever in the setting of recent C diff colitis. Was discharged from this facility on the 11 of November to complete a 10 day course of vancomycin. On reviewing records it looks as though upon initiation of antibiotics very quickly had significant resolution of diarrhea. Had been generally feeling well until this morning woke feeling chilled and temperature of 99?. Increasing diarrhea with elevated temperatures into febrile today up to 102. Is not having significant pain. No hematochezia or melena noted. Related Data Home Medications Medication Instructions Recorded Confirmed lisinopril 20 2 tab PO DAILY 11/10/23 11/26/23 mg-hydrochlorothiazide 12.5 mg tablet simvastatin 20 mg tablet 20 mg PO QPM 11/10/23 11/26/23 tamsulosin 0.4 mg capsule 0.4 mg PO DAILY 11/10/23 11/26/23 Previous Rx's Medication Instructions Recorded vancomycin 125 mg capsule 125 mg PO QID 12 days #48 caps 11/27/23 Allergies Allergy/AdvReac Type Severity Reaction Status Date / Time No Known Drug Allergies Allergy Verified 11/10/23 19:56 Review of Systems Status of ROS: Reports: 6 or more systems reviewed and unremarkable except as noted in History and below [facility] Medical History (Updated 11/27/23 @ 03:08 by Valdemar Plata MD) Elevated PSA ?R97.20 - Elevated prostate specific antigen [PSA] (ICD-10) BPH (benign prostatic hyperplasia) ?N40.0 - Benign prostatic hyperplasia without lower urinary tract symptoms (ICD-10) Prediabetes ?R73.03 - Prediabetes (ICD-10) Tricuspid regurgitation ?I07.1 - Rheumatic tricuspid insufficiency (ICD-10) Hyperlipidemia ?E78.5 - Hyperlipidemia, unspecified (ICD-10) Essential hypertension ?I10 - Essential (primary) hypertension (ICD-10) Surgical History (Updated 11/10/23 @ 19:34 by Jie Sanchez MD) Hx of tonsillectomy ?Z90.89 - Acquired absence of other organs (ICD-10) H/O nasal septoplasty ?Z98.890 - Other specified postprocedural states (ICD-10) Hx of cataract removal with insertion of prosthetic lens ?Z98.49 - Cataract extraction status, unspecified eye (ICD-10) ?Z96.1 - Presence of intraocular lens (ICD-10) Social History (Updated 11/10/23 @ 22:10 by Jie Sanchez MD) Narrative: Lives with Gege, 2 adult daughters. 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 Nonsmoker, rare ETOH use. Full Code. What is your current living situation?: I presently have a place to live Problems where you live: no known problems Problems where you live details: none In the past 12 months, utilities in danger of being shut off: no In past 12 months, lack of transportation kept you from medical appts, meetings, work, or getting things needed for daily living: no In the past 12 mos, have been you worried that your food would run out before you had money to buy more?: never true In the past 12 mos, the food you bought just didn't last and you didn't have money to buy more?: never true Smoking Status: Never smoker Do you use any of these nicotine containing products: None How often do you have a drink containing alcohol: 2-4 times a month How many standard drinks containing alcohol do you have on a typical day: 1 or 2 AUDIT-C Alcohol total score: 2 Non-prescribed substance use: denies use How often does anyone, including family, friends and others, physically hurt you: never How often does anyone, including family, friends and others, insult or talk down to you: never How often does anyone, including family, friends and others, threaten you with harm: never How often does anyone, including family, friends and others, scream or curse at you: never Exam Narrative: Exam Narrative: Pleasant. Of good energy. Skin is quite warm and dry. Breathing easily. Lungs with some clearing basilar crepitus. Heart in elevated rate. Appears to be regular rhythm. 1-2/6 systolic murmur loudest at the left sternal border. Abdomen with normoactive bowel sounds is soft. No peritoneal signs. Mildly uncomfortable generally. Extremities are well perfused. No edema. Const: Vital Signs, click to edit/add: Vital Signs - 24 hr 11/26/23 22:39 11/26/23 22:50 11/27/23 00:51 Temperature 101.2 F H 101.2 F H Pulse Rate 97 Pulse Rate [Pulse Oximeter] 92 Respiratory Rate 16 16 Blood Pressure Blood Pressure [Ri ght Upper Arm] 199/75 H Pulse Oximetry 96 96 94 Oxygen Delivery Me thod Room Air Room Air Room Air 11/27/23 01:00 11/27/23 01:02 11/27/23 03:00 Temperature 100.1 F H Pulse Rate 93 92 Pulse Rate [Pulse Oximeter] Respiratory Rate Blood Pressure 125/68 Blood Pressure [Ri ght Upper Arm] Pulse Oximetry 94 93 Oxygen Delivery Me thod 11/27/23 03:59 Temperature 99.5 F Pulse Rate Pulse Rate [Pulse Oximeter] 96 Respiratory Rate 20 Blood Pressure Blood Pressure [Ri ght Upper Arm] 136/66 Pulse Oximetry Oxygen Delivery Me thod Documenting provider has reviewed patient's vital signs: yes Course Vital Signs Vital signs: Initial Vital Signs Temperature 101.2 F H 11/26/23 22:39 Temperature Source Temporal Artery Scan 11/26/23 22:39 Pulse Rate 92 11/26/23 22:39 Respiratory Rate 16 11/26/23 22:39 Blood Pressure 199/75 H 11/26/23 22:39 Blood Pressure Mean 116 H 11/26/23 22:39 Blood Pressure Position Supine 11/26/23 22:39 Pulse Oximetry 96 11/26/23 22:39 Oxygen Delivery Method Room Air 11/26/23 22:39 Vital Signs Temperature 101.2 F H 11/26/23 22:39 Pulse Rate 92 11/26/23 22:39 Respiratory Rate 16 11/26/23 22:39 Blood Pressure 199/75 H 11/26/23 22:39 Pulse Oximetry 96 11/26/23 22:39 Oxygen Delivery Method Room Air 11/26/23 22:39 Temperature 99.5 F 11/27/23 03:59 Pulse Rate 96 11/27/23 03:59 Respiratory Rate 20 11/27/23 03:59 Blood Pressure 136/66 11/27/23 03:59 Pulse Oximetry 93 11/27/23 01:02 Oxygen Delivery Method Room Air 11/27/23 00:51 Medications Administered Medications: Discontinued Medications Generic Name Dose Route Start Last Admin Trade Name Josh PRN Reason Stop Dose Admin Sodium Chloride 1,000 mls @ 1,000 mls/hr 11/26/23 23:08 11/27/23 01:15 0.9 % Sodium Chloride 1000 Ml IV 11/27/23 00:07 Infused .Q1H ONE Infusion Sodium Chloride 1,000 mls @ 1,200 mls/hr 11/27/23 02:18 11/27/23 03:00 0.9 % Sodium Chloride 1000 Ml IV 11/27/23 03:07 1,200 mls/hr .Q50M ONE Administration Ibuprofen 800 mg 11/26/23 23:48 11/26/23 23:53 Ibuprofen 400 Mg Tablet PO 11/26/23 23:49 800 mg ONCE ONE Administration Vancomycin HCl 125 mg 11/27/23 03:03 11/27/23 03:36 Vancomycin 125 Mg Capsule PO 11/27/23 03:04 125 mg ONCE ONE Administration Medical Decision Making MDM Narrative Medical decision making narrative: Absolutely in this case have concerns of recurring C diff colitis. IV will be placed. Blood cultures. Will be initiating IV hydration. Check electrolytes. Check stool for return of C diff. would triple swab as well given prevalence in the community and recent hospitalization. White count is little elevated. Renal function looks good. Normal chemistries though magnesium is low normal. Unfortunately was indeed positive again for C difficile. Ultimately hydrated with 2 L normal saline. Vitals stable during time in the emergency department. Was given ibuprofen as well as vancomycin. Generally well otherwise and felt he could return home. Reviewing current C diff treatment recommendations would do longer course of vancomycin. Prescribed enough to potential point of taper at which point I would like him to follow up in primary care again. Vancomycin for 12 days at this point See patient discharge plan Lab Data Lab results reviewed: Yes I reviewed the patient's lab results Labs: Lab Results 11/26/23 11/26/23 Range/Units 23:08 23:09 WBC 13.49 H (4.50-11.00) K/uL RBC 4.61 (4.30-5.90) m/uL Hgb 14.1 (13.5-17.5) gm/dL Hct 40.2 (37.0-53.0) % MCV 87 (80-100) fL MCH 31 (26-34) pg MCHC 35 (32-36) gm/dL RDW Coeff of Esmer 12.9 (11.5-15.5) % Plt Count 176 (140-440) K/uL Neut % (Auto) 88.8 H (42.0-72.0) % Lymph % (Auto) 4.1 L (20-44) % Cook % (Auto) 6.4 (0.0-11.0) % Eos % (Auto) 0.2 (0.0-7.0) % Baso % (Auto) 0.3 (0.0-3.0) % Neut # (Auto) 12.00 H (1.7-7.0) K/uL Lymph # (Auto) 0.60 L (0.90-2.90) K/uL Cook # (Auto) 0.90 (0.00-0.90) K/UL Eos # (Auto) 0.00 (0.00-0.50) K/uL Baso # (Auto) 0.00 (0.00-0.30) K/uL Abs Immat Gran (auto) 0.00 (0.00-0.30) K/uL Imm/Tot Granulo (auto) 0.2 % Sodium 133 L (135-149) mmol/L Potassium 4.0 (3.6-5.1) mmol/L Chloride 97 (96-114) mmol/L Carbon Dioxide 28 (20-32) mmol/L Anion Gap 8 (7-15) mEq/L BUN 22 (7-30) mg/dL Creatinine 0.8 (0.5-1.5) mg/dL Estimated Creat Clear 69.64 Estimated GFR 90 ml/min Glucose 133 H (60-115) mg/dL Calcium 8.9 (8.4-10.6) mg/dL Magnesium 1.6 (1.5-2.6) mg/dL C-Reactive Protein 2.6 H (0.5-1.0) mg/dL Stl C. diff Tox B Gene POSITIVE A* (Negative) Stl C. diff [id number]-NAP1-BI PRESUMPTIVE POSITIVE (Negative) SARS-CoV-2 (PCR) Negative SARS-CoV-2 (Negative) Influenza Type A (PCR) Negative PCR FLU A (Negative) Influenza Type B (PCR) Negative PCR FLU B (Negative) RSV (PCR) Negative PCR RSV (Negative) Discharge Plan Discharge Clinical Impression: Recurrent colitis due to Clostridioides difficile Patient Disposition: Home w/ Parent or Adult Condition: Improved Additional Instructions: Take vancomycin as prescribed. I would like you to follow-up to assess progress at 10 days and I would anticipate beginning a taper prescribed from primary care immediately at the end of this vancomycin prescription you receive today. I would anticipate your diarrhea lessening quickly. Return/be seen for increasing diarrhea such that you cannot keep up with hydration needs, increasing weakness, fever after 2 days. Ibuprofen or acetaminophen for fever. Might want to supplement intake with powdered Powerade or similar particularly while still having diarrhea. Consider also addition of probiotics. Prescriptions: New vancomycin 125 mg capsule 125 mg PO QID 12 Days Qty: 48 0RF No Action lisinopril-hydrochlorothiazide 20-12.5 mg tablet 2 tab PO DAILY tamsulosin 0.4 mg capsule 0.4 mg PO DAILY simvastatin 20 mg tablet 20 mg PO QPM Follow Up/Referrals: Micha Kong MD [Primary Care Provider] - Stand Alone Forms: [employer] Info Instructions
[2023-11-26] MEDS: 0.9 % SODIUM CHLORIDE 1000 ml 1,000 ML IV (23:36)
[2023-11-26 23:46] LABS: Basophils Percent Auto 0.3 % (0.0-3.0); Eosinophils Percent Auto 0.2 % (0.0-7.0); Hematocrit 40.2 % (37.0-53.0); Hemoglobin* 14.1 gm/dL (13.5-17.5); Immature Granulocytes Pct Auto 0.2 %; Lymphocytes Percent Auto 4.1 % (20-44); Mean Corpuscular HGB Conc 35 gm/dL (32-36); Mean Corpuscular Hemoglobin 31 pg (26-34); Mean Corpuscular Volume 87 fL (80-100); Monocytes Percent Auto 6.4 % (0.0-11.0); Neutrophils Percent Auto 88.8 % (42.0-72.0); Platelet Count* 176 K/uL (140-440); RDW Coefficient of Variation % 12.9 % (11.5-15.5); Red Blood Count 4.61 m/uL (4.30-5.90); Slide Review Reflex No; White Blood Count* 13.49 K/uL (4.50-11.00)
[2023-11-26] MEDS: IBUPROFEN 400 MG TABLET 800 MG PO (23:53)
[2023-11-27 00:10] LABS: PCR FLU A Negative PCR FLU A (Negative); PCR FLU B Negative PCR FLU B (Negative); PCR RSV Negative PCR RSV (Negative)
[2023-11-27 00:12] LABS: SARS PCR* Negative SARS-CoV-2 (Negative)
[2023-11-27 00:12] LABS: Chloride* 97 mmol/L (96-114)
[2023-11-27 00:13] LABS: Sodium* 133 mmol/L (135-149)
[2023-11-27 00:15] LABS: Creatinine* 0.8 mg/dL (0.5-1.5); Est. Creatinine Clearance* 69.64; Estimated Glomerular Filt Rate 90 ml/min
[2023-11-27 00:16] LABS: Blood Urea Nitrogen* 22 mg/dL (7-30); Carbon Dioxide* 28 mmol/L (20-32); Glucose* 133 mg/dL (60-115)
[2023-11-27 00:17] LABS: Calcium* 8.9 mg/dL (8.4-10.6); Magnesium* 1.6 mg/dL (1.5-2.6)
[2023-11-27 00:19] LABS: C Reactive Protein* 2.6 mg/dL (0.5-1.0)
[2023-11-27 00:31] LABS: Anion Gap 8 mEq/L (7-15)
[2023-11-27 00:51] VITALS: PULSE 97; O2SAT 94
[2023-11-27 01:00] VITALS: PULSE 93; O2SAT 94
[2023-11-27 01:02] VITALS: BP 125/68; PULSE 92; O2SAT 93
[2023-11-27 02:29] LABS: C.Difficile POSITIVE (Negative)
[2023-11-27 02:31] LABS: CDIFFEPI 027 PRESUMPTIVE POSITIVE (Negative)
[2023-11-27 03:00] VITALS: TEMP 37.8
[2023-11-27] MEDS: 0.9 % SODIUM CHLORIDE 1000 ml 1,000 ML 1200 ML IV (03:00)
[2023-11-27] MEDS: VANCOMYCIN 125 MG CAPSULE PO (03:36)
[2023-11-27 03:59] VITALS: BP 136/66; PULSE 96; RESP 20; TEMP 37.5
== END 2023-11-27 08:00 | disposition home or self-care (01) ==
PROVIDERS: Emergency Provider Family Medicine; PCP Family Medicine
DX: K52.9 Noninfective gastroenteritis and colitis, unspecified (principal); A04.71 Enterocolitis due to Clostridium difficile, recurrent
CPT/HCPCS: 36415; 80048; 83735; 85025; 86140; 87493; 87631; 99283; 99284; A9270; J7030

== ENCOUNTER 2024-01-24 21:27 | Emergency (ER) | payer MEDICARE, OTHER, SELFPAY | END 2024-01-24 21:48 | disposition left against medical advice (07) | LOC: ED 21:48 | PROVIDERS: Emergency Provider Family Medicine; PCP Family Medicine | DX: Z53.21 Procedure and treatment not carried out due to patient leaving prior to being seen by health care provider (principal) ==